=== PATIENT | male | born 1970 | race Caucasian/White ===

== ENCOUNTER 2023-10-03 02:49 | Day surgery (SDC) | payer BC, SELFPAY ==
[2023-09-20 14:11] VITALS: BMI 21.4
--- NOTE | 2023-09-30 09:19 | SUR.PREOP ---
Patient called regarding upcoming procedure. Reviewed preop instructions, appointment times, and procedure prep.
--- NOTE | 2023-10-02 10:51 | PM.HPGS ---
History of Present Illness History of Present Illness Consent: Risks, benefits, and alternatives have been discussed and questions answered. Patient agrees to proceed with procedure. Chief complaint: Other fecal abnormalities (+ Cologuard) Narrative: Prasad Sherman is a 52 year old male Referred for colonoscopy because of his age because he performed a Cologuard test which was positive. Review of Systems Review of Systems: All systems reviewed & are unremarkable except as noted in HPI and below PMFSH Surgical History Surgical History History of bladder surgery Family History Family History Mother No problems noted. Father Cancer Social History Social History Smoking status: Never smoker Alcohol intake: never Substance use: never Substance use type: does not use Lack of Transportation: No Lack of Food: Never True Current Housing: I Have Housing Concerned About Future Housing: No Difficulty Paying Gas/Electric Bills: No Difficulty Paying for Meds: No Currently Unemployed: No Education: Trade/Vocational Certificate Difficulty w/ Childcare or Family Care: No Living arrangements: with family Occupation/Education: occupation Gender identity (if verbalized by the patient): Male Spiritual care concerns: No Meds Home Medications and Allergies Home Medications Medication Instructions Recorded Confirmed Type No Home Medications 06/30/23 10/03/23 History Allergies Allergy/AdvReac Type Severity Reaction Status Date / Time No Known Allergies Allergy Verified 10/03/23 08:11 Exam Const: General: alert Orientation/consciousness: patient oriented x3 Resp: Auscultation: clear to auscultation bilaterally Cardio: Rhythm: regular rhythm GI: GI Palp: Yes Soft to palpation and No Tenderness to palpation present (GI) Neuro: General: patient oriented x3 Assessment and Plan Assessment and plan (1) Positive colorectal cancer screening using Cologuard test: Code(s): R19.5 - Other fecal abnormalities Status: Acute Assessment and Plan: Colonoscopy with possible biopsy or polypectomy or cautery or injection of substances.
[2023-10-03 08:11] VITALS: BP 124/71; PULSE 56; RESP 18; TEMP 36.5; O2SAT 100
[2023-10-03] MEDS: LACTATED RINGERS 1,000 ML 150 ML IV CONT (08:14)
--- NOTE | 2023-10-03 08:46 | P.PNAN_ITS ---
Anes - Initial Pre Proc Eval Procedure: Operation Date: 10/03/23 09:30 Proposed Procedures p Colonoscopy - Tommy Quesada MD Date/Time: 10/03/23 08:46 Surgeon: Tommy Quesada MD Pre Op Diagnosis: Other fecal abnormalities (+ Cologuard) Patient Data Age: 52 Gender: M Height: 1.75 m Weight: 66 kg Last Vital Signs Temp 97.7 F 10/03/23 08:11 Pulse 56 L 10/03/23 08:11 Resp 18 10/03/23 08:11 BP 124/71 10/03/23 08:11 Pulse Ox 100 10/03/23 08:11 O2 Del Method Room Air 10/03/23 08:11 Allergies Allergy/AdvReac Type Severity Reaction Status Date / Time No Known Allergies Allergy Verified 10/03/23 08:11 Home Medications Medication Instructions Recorded Confirmed Type No Home Medications 06/30/23 10/03/23 History Patient hx anesthesia problems: none Family hx anesthesia problems: none Results Review: All pre-operative results and documents have been reviewed as part of the pre- operative evaluation. [facility] Surgical History Surgical History (Updated 06/30/23 @ 13:03 by Olga Gutierrez MA) History of bladder surgery Family History Family History (Updated 06/30/23 @ 13:04 by Olga Gutierrez MA) Mother No problems noted. Father Cancer Social History Social History (Updated 06/30/23 @ 13:06 by Olga Gutierrez MA) Smoking status: Never smoker Alcohol intake: never Substance use: never Substance use type: does not use Lack of Transportation: No Lack of Food: Never True Current Housing: I Have Housing Concerned About Future Housing: No Difficulty Paying Gas/Electric Bills: No Difficulty Paying for Meds: No Currently Unemployed: No Education: Trade/Vocational Certificate Difficulty w/ Childcare or Family Care: No Living arrangements: with family Occupation/Education: occupation Gender identity (if verbalized by the patient): Male Spiritual care concerns: No Anes - Eval Final PreProcedure Day of Procedure 10/03/23 08:46 Patient weight: normal Heart: regular rate and rhythm Lungs: clear to auscultation Airway: Mallampati scale class II Neurological: alert and oriented Last oral intake: >/= 8 hours ASA classification: I Emergent: no Anesthetic plan: proceed Anesthesia type and monitoring: general GIVS and standard monitoring Results Review: All pre-operative results and documents have been reviewed as part of the pre-operative evaluation. Informed Consent: The patient's anesthetic plan and its attendant risks and benefits were discussed with the patient/family/POA. Questions were solicited and answers provided to the satisfaction of the patient/family/POA.
[2023-10-03 09:42] VITALS: BP 106/64; PULSE 61; RESP 19; O2SAT 100
[2023-10-03 09:52] VITALS: BP 103/70; PULSE 75; RESP 18; O2SAT 100
[2023-10-03 10:02] VITALS: BP 108/73; PULSE 72; RESP 18; O2SAT 100
== END 2023-10-03 10:09 | disposition home or self-care (01) ==
PROVIDERS: PCP Physician Assistant Medical; Visit Provider Internal Medicine Gastroenterology
PROC: 0DJD8ZZ Inspection of Lower Intestinal Tract, Via Natural or Artificial Opening Endoscopic (ICD-10-PCS; CPT 45378; principal; 2023-10-03 09:30)
DX: R19.5 Other fecal abnormalities (principal); K63.5 Polyp of colon; Z80.9 Family history of malignant neoplasm, unspecified; Z98.890 Other specified postprocedural states
CPT/HCPCS: 45385; 88305; J2704; J7120